=== PATIENT | male | born 1965 | race Caucasian/White ===

== ENCOUNTER 2017-09-14 06:25 | Inpatient (IN) | payer OTHER ==
[2017-08-24 11:27] VITALS: BMI 24.0
--- NOTE | 2017-08-24 12:07 | PAT Medication Instructions ---
Service Date Aug 24, 2017. Current Home Medication List Atorvastatin (Lipitor), 10 MG PO HS Calcipotriene-Betamethasone Di (Taclonex), 1 DOSE TOP 3XWK Flunisolide (Nasal) (Flunisolide), 1 SPRY BETSY DAILY PRN for PRN Levothyroxine Sodium (Synthroid), 150 MCG PO QAM Medication Instructions For Your Scheduled Surgery - Hold the following medications 24 hours prior to surgery: Calcipotriene-Betamethasone Di (Taclonex), 1 DOSE TOP 3XWK - Take the following medications the morning of surgery with a sip of water: Levothyroxine Sodium (Synthroid), 150 MCG PO QAM Flunisolide (Nasal) (Flunisolide), 1 SPRY BETSY DAILY PRN for PRN (if needed) - Take the following medications as scheduled the night before surgery: Flunisolide (Nasal) (Flunisolide), 1 SPRY BETSY DAILY PRN for PRN (if needed) Atorvastatin (Lipitor), 10 MG PO HS If you have any questions please call us at [phone] or [phone] or [phone]
--- NOTE | 2017-08-24 13:03 | DIAGNOSTIC IMAGING REPORT ---
CHEST 2 VIEWS ROUTINE HISTORY: 52 years-old Male pat preoperative exam. No acute chest complaints. Left knee degenerative joint disease. COMPARISON: None available TECHNIQUE: PA and lateral views of the chest FINDINGS: Cardiomediastinal and hilar silhouettes are within normal limits. There is no pneumothorax, pleural effusion, focal airspace consolidation or overt pulmonary edema. Mild degenerative changes of the spine. Bones appear grossly intact. IMPRESSION: No acute cardiopulmonary process. The above report was generated using voice recognition software. It may contain grammatical, syntax or spelling errors. Electronically signed by: Sid Barajas M.D. 08/24/2017 1:02 PM Dictated Date/Time: 08/24/2017 1:01 PM
[2017-08-24 13:12] LABS: BASO % 0.3 %; BASO ABS # 0.02 K/uL (0-0.2); EOS % 2.6 %; EOS ABS # 0.17 K/uL (0-0.5); IG# 0.02 K/uL (0.00-0.02); LYMPH % 22.3 %; LYMPH ABS # 1.43 K/uL (1.2-3.4); MEAN CELL VOLUME 94.9 fL (80-100); MEAN CORPUSCULAR HEMOGLOBIN 31.6 pg (25-34); MEAN CORPUSCULAR HGB CONC 33.3 g/dl (32-36); MEAN PLATELET VOLUME 9.9 fL (7.4-10.4); MONO % 7.3 %; MONO ABS # 0.47 K/uL (0.11-0.59); NEUT % 67.2 %; NEUT ABS # 4.31 K/uL (1.4-6.5); PLATELET COUNT 279 K/uL (130-400); RED CELL DISTRIBUTION WIDTH CV 13.7 % (11.5-14.5); RED CELL DISTRIBUTION WIDTH SD 47.2 fL (36.4-46.3); WHITE BLOOD COUNT 6.42 K/uL (4.8-10.8)
[2017-08-24 13:17] LABS: PTT PATIENT 26.9 SECONDS (21.0-31.0)
--- NOTE | 2017-09-11 10:32 | HISTORY & PHYSICAL EXAMINATION ---
DATE OF ADMISSION: 09/14/2017 CHIEF COMPLAINT: Bilateral knee pain and discomfort, left leg greater than right. HISTORY OF PRESENT ILLNESS: A 52-year-old very active gentleman who presents for surgical treatment of his left knee. He has got a long history of problems, particularly relating to the left knee. He had left knee arthroscopy, partial meniscectomy, chondroplasty and debridement of an ACL tear done by Dr. Bui in 2008. It took quite a while, about 6 months, to recover from this. He did get back to playing basketball for a short period of time but could only play for limited amount of time. Over the years, he has developed increased pain and discomfort and recurrent effusions in his knee. He has been less able to get around and do anything activity rodriguez. He has been through extensive conservative treatment including steroid shots and viscosupplementation. This provides very minimal relief anymore. He has got pain with every step. He would like to proceed with knee arthroplasty. PAST MEDICAL HISTORY: 1. Elevated cholesterol. 2. Hypothyroidism. 3. 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 PAST SURGICAL HISTORY: Include: 1. Knee arthroscopy in 2008. 2. Nephrectomy in 2012. 3. Appendectomy. ALLERGIES: None. CURRENT MEDICINES: 1. Synthroid 150 mcg a day. 2. Taclonex 3 times a week topically. 3. Tylenol. SOCIAL HISTORY: A 52-year-old male. 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 Does not smoke. FAMILY HISTORY: Negative for heart disease, diabetes, or blood clots. REVIEW OF SYSTEMS: Negative for diabetes, neurologic problems, vascular problems or bleeding disorders. Denies any chest pain, no shortness of breath. No history of DVT or PE. He does only have a single kidney due to donation. PHYSICAL EXAMINATION: GENERAL: Reveals a thin, healthy, middle-aged male. He looks to be in good health. HEAD, EYES, EARS, NOSE, AND THROAT EXAMINATION: Benign. NECK: Supple. No lymphadenopathy. LUNGS: Clear to auscultation. HEART: Regular rate and rhythm. ABDOMEN: Soft, nontender, nondistended. EXTREMITY EXAMINATION: Grossly neurovascularly intact except as follows: Examination of left knee reveals the patient ambulates with a varus alignment to knees. He has got varus thrust. Small to moderate sized knee effusion. Range of motion about 5-125. A soft endpoint to Mode. No pivot. X-RAYS: X-rays of the left knee revealed advanced left knee DJD. He has got complete loss of his medial joint space. He has subchondral sclerosis with some degree of tibial femoral subluxation. ASSESSMENT: A 52-year-old male with a history of a knee arthroscopy in the left knee in the past with advanced DJD with chronic ACL deficiency. He would like to have his left knee replaced. PLAN: We will take him to the operating room and do a left total knee replacement. The risks and benefits of this procedure were explained to the patient including but not limited to DVT, PE, , infection, neurological injury, vascular injury, bleeding problem, pain, limited range of motion, stiffness, failure to relieve his symptoms, incomplete relief of symptoms, need for further surgery in the future, fracture, leg length inequality, nerve palsy, need for revision surgery. I made him fully aware at his young age this might need to be revised at some point in the future and he is aware of that. As far as discharge plans, he is planning to be discharged to home using [facility] home health program.
[2017-09-14] VITALS (9 sets, daily range): BP systolic 94–117; BP diastolic 53–72; PULSE 52–75; TEMP 36.4–36.7; O2SAT 93–100; Ht 185.4 cm; Wt 83.9 kg
[~2017-09-14] VITALS: Ht 185.4 cm; Wt 83.9 kg
[~2017-09-14 06:25] MED LIST: ACETAMINOPHEN 500 MG TAB PO SCH; ATOR10TA82 PO; BUPIVACAINE LIPOSOME 266 MG, BUPIVACAINE/EPINEPHRINE INJ 50 ML, SODIUM CHLORIDE 0.9% PF... INFIL SCH; CALCOIN3 TOP; CEFAZOLIN 2000MG IV PUSH 10 ML IV SCH; FAMOTIDINE 20 MG TAB PO SCH; FLUN0.02 NAE; GABAPENTIN 300 MG CAP PO SCH; LACTATED RINGER'S 1000ML 1,000 ML IV SCH; LACTATED RINGER'S 1000ML 500 ML IV ONE; LACTATED RINGER'S 1000ML IV SCH; LEVO150T PO; METOCLOPRAMIDE HCL 10 MG TAB PO SCH; SCOPOLAMINE 1.5 MG TDSY TD SCH; TRANEXAMIC ACID INJ 1,000 MG in SYRINGE 0 ML IV SCH
[2017-09-14] MEDS ORDERED: EpINEphrine INJ 1MG/ML AMP 1 MG/ML AMP ONE (06:41)
[2017-09-14] MEDS ORDERED: BUPIVACAINE 0.25% 30 ML VIAL ONE (06:41)
[2017-09-14] MEDS ORDERED: BUPIVACAINE 0.5 % 5 MG/1 ML PF 10ML VIAL ONE (06:41)
[2017-09-14] MEDS ORDERED: DEXAMETHASONE SOD INJ 4 MG/ML VIAL ONE (06:42)
--- NOTE | 2017-09-14 06:51 | History & Physical Bridge Note ---
H&P Re-Evaluation Bridge Note: I have examined the patient, reviewed the History & Physical and in the interval since the performance of the History & Physical I have noted the following changes of clinical significance: No changes noted
[2017-09-14] MEDS ORDERED: MIDAZOLAM HCL 1 MG/ML 2ML VIAL ONE (07:58)
[2017-09-14] MEDS ORDERED: FENTANYL CITRATE INJ 50 MCG/1 ML 2 ML VIAL ONE (07:59)
[2017-09-14] MEDS ORDERED: BACITRACIN 50000 UNIT VIAL ONE (08:54)
[2017-09-14] MEDS ORDERED: SODIUM CHLORIDE 0.9% PF 50 ML VIAL ONE (08:54)
[2017-09-14] MEDS ORDERED: BUPIVACAINE LIPOSOME 1/3% 266 MG/20 ML VIAL INFIL ONE (08:54)
[2017-09-14] MEDS ORDERED: BUPIVACAINE/EPINEPHRINE 0.25% 1:200,000 30 ML VIAL ONE (08:54)
[2017-09-14] MEDS ORDERED: PROPOFOL IV EMULSION 10 MG/ML 20 ML VIAL IV ONE (10:13)
[2017-09-14] MEDS ORDERED: EpHEDrine SULFATE INJ 50 MG/ML AMP IV PRN (10:15)
[2017-09-14] MEDS ORDERED: ATROPINE SULFATE 0.1 MG/ML 5ML SYR IV PRN (10:15)
[2017-09-14] MEDS ORDERED: ONDANSETRON INJ 2 MG/ML 2 ML VIAL IV PRN ×2 (10:15→11:00)
[2017-09-14] MEDS ORDERED: FENTANYL CITRATE INJ 50 MCG/1 ML 2 ML VIAL IV PRN (10:15)
--- NOTE | 2017-09-14 10:54 | [facility] Post Operative Brief Note ---
Immediate Operative Summary Operative Date Sep 14, 2017. Pre-Operative Diagnosis Left Knee Advanced Degenerative Joint Disease Post-Operative Diagnosis Left Knee Advanced Degenerative Joint Disease Procedure(s) Performed Left Total Knee Arthroplasty Surgeon Dr. Soriano Master Police Detective Surgeon(s) KAREEM Starr Estimated Blood Loss 50 ml Findings Left Knee DJD Fluids (cc crystalloids) 1500 cc Specimens A. Left Knee Bone and Tissue Drains None Anesthesia Spinal Complication(s) None Disposition Recovery Room / PACU
[2017-09-14] MEDS ORDERED: ZOLPIDEM TARTRATE 5 MG TAB PO PRN (11:00)
[2017-09-14] MEDS ORDERED: DiphenhydrAMINE HCL 50 MG/ML VIAL IV PRN (11:00)
[2017-09-14] MEDS ORDERED: TAMSULOSIN HCL 0.4 MG CAP PO PRN (11:00)
[2017-09-14] MEDS ORDERED: METOCLOPRAMIDE HCL INJ 5 MG/ML 2 ML VIAL IV PRN (11:00)
[2017-09-14] MEDS ORDERED: MAGNESIUM HYDROXIDE SUSP 30 ML UDC PO PRN (11:00)
[2017-09-14] MEDS ORDERED: BISACODYL 10 MG SUPP PR PRN (11:00)
[2017-09-14] MEDS ORDERED: ALUMINUM/MAGNESIUM/SIMETH (MAALOX MAX) 30 ML UDC PO PRN (11:00)
[2017-09-14] MEDS ORDERED: SILVER SULFADIAZINE 1% CR 50 GM JAR EXT PRN (11:00)
[2017-09-14] MEDS ORDERED: MoRPHine SULFATE 2 MG/ML CARP IV PRN (11:00)
--- NOTE | 2017-09-14 11:30 | DIAGNOSTIC IMAGING REPORT ---
L KNEE 1 OR 2 VIEWS ROUTINE CLINICAL HISTORY: 52 years-old Male presenting with AP/LATERAL IN PACU LEFT KNEE. TECHNIQUE: Frontal and crosstable lateral views of the left knee were obtained. COMPARISON: 06/03/2017. FINDINGS: There has been interval total left knee arthroplasty with patellar resurfacing. Expected intra-articular and soft tissue emphysema. Overlying surgical skin vianey. No malalignment. No periprosthetic fracture. No hardware complication. Fabella noted. IMPRESSION: Expected postsurgical appearance status post left total knee arthroplasty with patellar resurfacing. Electronically signed by: Ronny Donato M.D. 09/14/2017 11:28 AM Dictated Date/Time: 09/14/2017 11:27 AM
--- NOTE | 2017-09-14 11:38 | OPERATIVE REPORT ---
DATE OF OPERATION: 09/14/2017 PREOPERATIVE DIAGNOSIS: Left knee degenerative joint disease. POSTOPERATIVE DIAGNOSIS: Left knee degenerative joint disease. PROCEDURE PERFORMED: Left cemented posterior stabilized total knee arthroplasty. SURGEON: Dr. Derrick Soriano. HOSPICE COMMUNITY LIAISON: Celestino Joseph PA-C. COMPLICATIONS: None. ESTIMATED BLOOD LOSS: 50 mL. FLUID REPLACEMENT: 1600 mL crystalloid fluid replacement. TOURNIQUET TIME: 59 minutes at 300 mmHg. ANESTHESIA: Spinal with adductor canal block. DRAINS: None. SPECIMENS: Left knee sent for pathology. OPERATIVE INDICATIONS: The patient is a 52-year-old male who has had a long history of left knee pain and discomfort. He underwent a knee arthroscopy done elsewhere back in 2008 which provided some temporary relief. Over time, he has developed increased pain and discomfort, swelling and recurrent effusions in his knee unresponsive to conservative care. X-rays show progressive knee arthritis. He elected to proceed with operative treatment. OPERATIVE FINDINGS: Operative findings revealed advanced left knee DJD with grade 4 [id number] disease in the medial femoral condyle and medial tibial plateau with eburnation in these areas. He also had grade 4 changes of the trochlea. The patella was more well preserved as was the lateral compartment of his knee. He had a moderate sized joint effusion. OPERATIVE IMPLANTS: Operative implants consisted of: 1. Biomet Vanguard size 72.5 left posterior stabilized femoral component. 2. Biomet size 83 tibial tray. 3. A 12 mm posterior stabilized polyethylene insert. 4. A 34 x 8.5 all poly patella. OPERATIVE PROCEDURE: The patient was taken to the operating room, identified and placed on the operating table in supine position. All contact areas were appropriately padded. IV antibiotics were provided by anesthesia team. A spinal anesthetic and adductor canal block had been provided in the holding area. Pascual catheter was placed in sterile fashion. The left thigh tourniquet was then placed and the left lower extremity was then prepped and draped in the usual sterile fashion. The left leg was elevated and exsanguinated with Esmarch and tourniquet was placed at 300 mmHg. An anterior approach to the left knee was then performed through a longitudinal incision centered over the patella. Sharp dissection was carried down through the subcutaneous tissues down to the level of the extensor mechanism. A medial parapatellar arthrotomy incision was made. Some subperiosteal dissection was carried out medially. The fat pad was resected from beneath the patellar tendon. The lateral patellofemoral ligament was released. The patella was everted and knee was flexed. The osteophytes were taken off the distal femur. The ACL and PCL were then released from the distal femur and the tibia subluxated anteriorly. The external tibial alignment jig was then placed in the anterior face of the tibia and adjusted 16 mm medially. Proximal tibial cut was made to remove about a millimeter of bone from the most deficient aspect and posteromedial tibial plateau which was fairly worn. Some osteophytes were taken off medially. The tibia was sized to a size 83. Attention was then drawn to the femur. The distal femur was entered with a sharp drill. Intramedullary canal was suctioned. A left 6-degree valgus cutting guide was placed. Distal femoral cutting block was pinned in place. Distal femoral cut was made to take an additional 3 mm of bone off the distal femur. The femur was then sized to a size 72.5. We did downsize this slightly. AP cutting block was pinned parallel to the epicondylar axis, which was 3 degrees of external rotation. The anterior cut, anterior chamfer, posterior cut, posterior chamfer cuts were made. Box cutting guide was placed and adjusted slightly lateral and the box cut was made. The knee was flexed. The remnants of the medial and lateral meniscus were excised. The osteophytes were taken off the posterior aspect of the femur. Trial femoral component was placed. Tibial tray was pinned in maximum external rotation and drill and stem punch were used to create defect in proximal tibia for the tibial tray. The knee was then trialed and the 12 mm insert fit most appropriately. Attention was then drawn to the patella. The patella was cleaned of all soft tissues. Patella thickness measured 26 mm in thickness and was cut down to 14. It was sized to a size 34 patella. Lateral osteophyte was removed. Patella button was placed. Knee was taken through range of motion, patella tracked nicely with no thumbs test. Attention was then drawn toward placement of permanent components. All trial components removed. Bone plug was placed in the distal femur to limit blood loss. A double batch of Palacos G cement was mixed. A left size 72.5 posterior stabilized femoral component, size 83 tibial tray, 12 mm posterior stabilized polyethylene insert, and a 34 x 8.5 all poly patella were then cemented in place. The knee was brought out into full extension until cement hardened. A final cement check was then performed. Pericapsular tissues were injected with a total of 100 mL of a combination of 20 mL of Exparel, 30 mL of normal saline, and 50 mL of 0.25% Marcaine with epinephrine. The tourniquet was then let down for a total tourniquet time of 59 minutes. Hemostasis was assured with use of electrocautery. The extensor mechanism was then closed with a combination of #1 PDS suture and #1 Vicryl suture in a apsyrp-rx-fojni fashion. Extensor mechanism was checked and found to be intact. Subcutaneous tissues were then closed with 2-0 Dexon suture in a buried interrupted fashion. Skin was closed skin vianey. Leg was then cleaned and dried and a sterile dressing of Xeroform, 4 x 4s, sterile cast padding and Augusto bandage were applied. The patient then transferred to the recovery room in stable condition. The patient tolerated the procedure with no complications. All needle and sponge counts were correct at the end of the operation. I attest to the content of the Intraoperative Record and any orders documented therein. Any exception s are noted below.
--- NOTE | 2017-09-14 11:39 | Anesthesiology Progress Note ---
Anesthesia Post Op Note Date & Time Sep 14, 2017 at 11:39 Vital Signs Pain Intensity: 0 Vital Signs Past 12 Hours Date Time Temp Pulse Resp B/P (MAP) Pulse Ox O2 Delivery O2 Flow Rate FiO2 09/14/17 11:35 36.5 67 16 97/52 100 Nasal Cannula 2 09/14/17 11:25 63 16 94/51 100 Nasal Cannula 2 09/14/17 11:15 51 16 93/54 100 Oxymask 5 09/14/17 11:05 36.5 73 16 111/65 98 Oxymask 5 09/14/17 10:58 36.5 64 16 98/54 98 Oxymask 5 09/14/17 07:33 36.5 67 18 117/72 99 Room Air 09/14/17 07:05 36.5 67 18 117/72 (87) Room Air Notes Mental Status: alert / awake / arousable, participated in evaluation Pt Amnestic to Procedure: Yes Nausea / Vomiting: adequately controlled Pain: adequately controlled Airway Patency, RR, SpO2: stable & adequate BP & HR: stable & adequate Hydration State: stable & adequate Neuraxial Anesthesia: was administered, sensory block is resolving Anesthetic Complications: no major complications apparent
--- NOTE | 2017-09-14 13:40 | PROGRESS NOTE ---
DATE: 09/14/2017 DATE: 09/14/2017 SUBJECTIVE: A 52-year-old gentleman postop from a left knee replaced. He is doing well. Not having any significant pain yet. No chest pain or shortness of breath. Not feeling dizzy or lightheaded. OBJECTIVE: VITAL SIGNS: Temperature 36.4. Vital signs stable. PHYSICAL EXAMINATION: GENERAL: Reveals a pleasant, middle-aged male. He is sitting up in bed and talking to his . He looks pretty comfortable. Just a little bit groggy. LUNGS: Clear to auscultation. HEART: Has a regular rate and rhythm. ABDOMEN: Soft, nontender, nondistended. EXTREMITY EXAMINATION: Grossly neurovascularly intact except as follows: Examination of the left lower extremity reveals the leg to be well aligned. He can dorsiflex and plantarflex his foot appropriately. He has got brisk refill and good distal pulse. X-RAYS: X-rays of the left knee from recovery room were reviewed. Shows left mentally stabilized total knee arthroplasty. Components looked to be in good position. No signs of problems. ASSESSMENT: A 52-year-old gentleman postop from a left knee replacement, doing well. His pain is controlled. He is neurologically intact. PLAN: 1. DVT prophylaxis including thigh-high TEDs, SCDs, and aspirin twice a day. 2. PT/OT. Weight bear as tolerated. Left total knee protocol. 3. Pain control. Doing pretty well with current pain regimen. He only has a single kidney. We are going to give him a little Toradol for 2 days and that is it. We will avoid NSAIDs after that. We will follow his creatinine. 4. IV antibiotics x24 hours. 5. Disposition. Plan to discharge to home with likely some home health once adequately recovered.
[2017-09-14] MEDS: D5W AND 1/2NSS + 20MEQ KCL 1,000 ML IV SCH ×2 (13:51→21:54)
[2017-09-14] MEDS: ACETAMINOPHEN 500 MG TAB PO SCH ×2 (13:52→21:58)
[2017-09-14] MEDS: KETOROLAC TROMETHAMINE 30 MG/ML VIAL IV. SCH ×2 (13:52→20:27)
[2017-09-14] MEDS: FERROUS GLUCONATE 324 MG TAB PO SCH ×2 (14:10→17:43)
[2017-09-14] MEDS: OXYCODONE HCL IR 5 MG TAB (IMMEDIATE RELEASE) PO PRN ×2 (16:12→23:01)
[2017-09-14] MEDS: CHECK SCOPOLAMINE PATCH PLACEMENT SCH (16:15)
[2017-09-14] MEDS ORDERED: TRANEXAMIC ACID INJ 1,000 MG in SODIUM CHLORIDE 0.9% 100ML 100 ML IV SCH (17:00)
[2017-09-14] MEDS: CEFAZOLIN IV 2,000 MG in SYRINGE 0 ML IV SCH (18:19)
[2017-09-14] MEDS: ASPIRIN 325 MG ECTAB PO SCH (21:00)
[2017-09-14] MEDS: ATORVASTATIN 10 MG TAB PO SCH (21:56)
[2017-09-14] MEDS: SENNA 8.6 MG TAB PO SCH (21:56)
[2017-09-14] MEDS: TAPENTADOL ER 50 MG TABCR PO SCH (21:56)
[2017-09-14] MEDS: DOCUSATE SODIUM 100 MG CAP PO SCH (21:57)
[2017-09-15] MEDS: CHECK SCOPOLAMINE PATCH PLACEMENT SCH ×3 (00:15→15:28)
[2017-09-15] MEDS: CEFAZOLIN IV 2,000 MG in SYRINGE 0 ML IV SCH (01:55)
[2017-09-15] MEDS: KETOROLAC TROMETHAMINE 30 MG/ML VIAL IV. SCH ×4 (01:55→20:04)
[2017-09-15 03:31] VITALS: BP 101/62; PULSE 74; TEMP 36.5; O2SAT 96
[2017-09-15] MEDS: D5W AND 1/2NSS + 20MEQ KCL 1,000 ML IV SCH (04:52)
[2017-09-15] MEDS: LEVOTHYROXINE 150 MCG TAB PO SCH (05:37)
[2017-09-15] MEDS: ACETAMINOPHEN 500 MG TAB PO SCH ×3 (05:37→21:32)
[2017-09-15 06:55] VITALS: BP 103/59; PULSE 65; TEMP 36.6; O2SAT 97
[2017-09-15 07:45] VITALS: O2SAT 97
[2017-09-15] MEDS: FERROUS GLUCONATE 324 MG TAB PO SCH ×3 (08:20→18:02)
[2017-09-15 08:21] LABS: HEMATOCRIT 38.9 % (42-52); HEMOGLOBIN 13.1 g/dL (14.0-18.0); MEAN CELL VOLUME 93.1 fL (80-100); MEAN CORPUSCULAR HEMOGLOBIN 31.3 pg (25-34); MEAN CORPUSCULAR HGB CONC 33.7 g/dl (32-36); MEAN PLATELET VOLUME 10.2 fL (7.4-10.4); PLATELET COUNT 235 K/uL (130-400); RED CELL DISTRIBUTION WIDTH CV 13.5 % (11.5-14.5); RED CELL DISTRIBUTION WIDTH SD 45.8 fL (36.4-46.3); WHITE BLOOD COUNT 17.54 K/uL (4.8-10.8)
[2017-09-15 08:53] LABS: CALCIUM 8.4 mg/dl (8.5-10.1); CREATININE 1.1 mg/dl (0.60-1.40); POTASSIUM 4.1 mmol/L (3.5-5.1)
[2017-09-15] MEDS: ASPIRIN 325 MG ECTAB PO SCH ×2 (09:00→20:56)
[2017-09-15] MEDS: DOCUSATE SODIUM 100 MG CAP PO SCH ×2 (09:03→20:56)
[2017-09-15] MEDS: TAPENTADOL ER 50 MG TABCR PO SCH ×2 (09:03→20:56)
[2017-09-15] MEDS: PANTOprazole SOD 40 MG TAB PO SCH (09:04)
[2017-09-15] MEDS: MULTIVITAMIN TAB PO SCH (09:04)
[2017-09-15 11:39] VITALS: BP 116/73; PULSE 73; TEMP 36.5; O2SAT 97
[2017-09-15] MEDS: OXYCODONE HCL IR 5 MG TAB (IMMEDIATE RELEASE) PO PRN ×2 (12:05→20:03)
--- NOTE | 2017-09-15 12:59 | Anesthesiology Progress Note ---
Anesthesia Post Op Note Date & Time Sep 15, 2017 at 12:58 Vital Signs Pain Intensity: 2.0 Vital Signs Past 12 Hours Date Time Temp Pulse Resp B/P (MAP) Pulse Ox O2 Delivery O2 Flow Rate FiO2 09/15/17 11:39 36.5 73 16 116/73 (87) 97 Room Air 09/15/17 07:45 97 Room Air 09/15/17 06:55 36.6 65 19 103/59 (74) 97 Room Air 09/15/17 03:31 36.5 74 16 101/62 (75) 96 Room Air Notes Mental Status: alert / awake / arousable, participated in evaluation Pt Amnestic to Procedure: Yes Nausea / Vomiting: adequately controlled Pain: adequately controlled Airway Patency, RR, SpO2: stable & adequate BP & HR: stable & adequate Hydration State: stable & adequate Neuraxial Anesthesia: sensory block resolved Anesthetic Complications: no major complications apparent
--- NOTE | 2017-09-15 15:18 | PROGRESS NOTE ---
DATE: 09/15/2017 SUBJECTIVE: A 52-year-old gentleman postop day #1 from a left knee replacement. He is doing well. He rates his maximum pain at about 2. No chest pain or shortness of breath. Not feeling dizzy or lightheaded. OBJECTIVE: VITAL SIGNS: Temperature 36.5. Vital signs stable. GENERAL: Physical examination reveals a healthy, pleasant, middle-aged male. He is sitting up in bed and looks quite comfortable. EXTREMITIES: Examination of the left leg reveals the dressing to be in place. Leg is well aligned. He can dorsiflex and plantarflex his foot appropriately. He is neurologically intact. LABORATORY DATA: Hemoglobin 13.1, hematocrit 38.9, and white cell count 17.54. Electrolytes are stable. Creatinine 1.10. ASSESSMENT: A 52-year-old gentleman postop day #1 from a left knee replacement, doing pretty well. Pain is controlled. He is neurologically intact. PLAN: 1. DVT prophylaxis including thigh-high TEDs, SCDs, and aspirin twice a day. 2. PT/OT. Weightbear as tolerated. Left total knee protocol. 3. Pain control. Doing pretty well with current pain regimen. We will do 48 hours of Toradol and then stop altogether due to single kidney. 4. Disposition: He is planning to be discharged to home with some home health once adequately recovered.
[2017-09-15 15:30] VITALS: BP 138/71; PULSE 65; TEMP 36.9; O2SAT 97
[2017-09-15] MEDS: ATORVASTATIN 10 MG TAB PO SCH (20:56)
[2017-09-15] MEDS: SENNA 8.6 MG TAB PO SCH (20:56)
[2017-09-15] MEDS ORDERED: ACET-24 PO (21:11)
[2017-09-15] MEDS ORDERED: ASPEC325 PO (21:11)
[2017-09-15] MEDS ORDERED: RXC5 PO (21:11)
--- NOTE | 2017-09-15 21:13 | Discharge Instructions ---
Discharge Instructions Date of Service Sep 15, 2017. Admission Reason for Admission: Left Knee Degenerative Joint Disease Discharge Discharge Diagnosis / Problem: Left Knee Replacement Discharge Goals Goal(s): Decrease discomfort, Improve function, Increase independence, Improve disease control, Therapeutic intervention Activity Recommendations Activity Limitations: per Instructions/Follow-up section Weightbearing Status: Left weightbearing . Instructions / Follow-Up Instructions / Follow-Up ACTIVITY RECOMMENDATIONS: Physical Therapy: * You will go to physical therapy three times each week for four to six weeks after your surgery in order to regain your knee range of motion and to retrain your knee to work properly. * It is just as important to make sure you are getting your knee perfectly straight as it is to regain your knee bend. * Taking a pain pill an hour before therapy can help you have a more productive and comfortable therapy session. Home Exercise: * You were shown a series of exercises (heel props, heel slides, etc.) in the hospital. Do these exercises three to four times each day including the exercises you were shown in physical therapy. Walking: * Get up and walk several times each day. For the first four weeks, try not to stand or walk for more than one hour at a time. If you do stand or walk for more than one hour, you will not hurt anything, but your knee and leg will likely swell. * As you feel comfortable, you may change from the walker or crutches to a cane and then to independent walking. MEDICATIONS: New Medicine: * You will likely be taking one or more of these medications: 1. Oxycodone - A quick and shorter-acting pain medication. Take one to two tablets every four to six hours to lessen your pain. 2. Aspirin - Thins your blood to lessen the chance of forming a blood clot. * The most common side effects of pain medicine and iron are nausea and constipation. If nausea or constipation is too much of a problem or if you have any questions about your new medicines or doses, call [facility] at [phone]. We will try to help you manage these issues. VERY IMPORTANT TO READ AND REVIEW" Pain: * The immediate post-operative period after knee replacement surgery is often quite painful. * You are given a prescription for pain medicine. You should take it, as directed, when you need it, especially before physical therapy and before going to bed. Pain that interferes with sleep is very common and can last several months. * You will likely need pain medicine for the first four to six weeks. It will not stop all of the pain. The pain will lessen and as you feel better, you may change to milder pain medicine such as Tylenol. * The most common side effects of pain medicine are nausea and constipation, so don't take more than you need. SPECIAL CARE INSTRUCTIONS: TEDs/Elastic Stockings: * The white elastic stockings help limit swelling and prevent blood clots from forming in your legs. The more you wear them, the more they work. * Wear them for six weeks after knee replacement surgery and four weeks after partial knee replacement. Prevention of Infection: * Take antibiotics one hour before any dental cleaning, dental work, urological procedure, gastrointestinal procedure or any invasive surgery in order to prevent your new joint from getting infected. * You may get the antibiotics from the doctor performing the procedure or you may call our office at before and we will call in a prescription to the pharmacy of your choice. Things to Watch For: * Drainage from the incision site that occurs more than one week after your surgery. * Severely increased knee/leg pain or swelling. * Increased redness at the incision site. * Fever above 102 degrees Fahrenheit. * Unusual chest pain or shortness of breath. * Unusual pain or burning with urination. Call [facility] at with any of the above problems or if you have any questions about your medicines or recovery. FOLLOW UP VISIT: Make an appointment to see your doctor for approximately two weeks after surgery for a progress check and staple removal by calling the office at . Current Hospital Diet Patient's current hospital diet: Regular Diet Discharge Diet Recommended Diet: Regular Diet Procedures Procedures Performed: Left Total Knee Arthroplasty Pending Studies Studies pending at discharge: no Medical Emergencies . Who to Call and When: Medical Emergencies: If at any time you feel your situation is an emergency, please call [phone] immediately. . Non-Emergent Contact Non-Emergency issues call your: Surgeon . "Provider Documentation" section prepared by Derrick Soriano. . VTE Core Measure Inpt VTE Proph given/why not?: Other Anticoagulation, T.E.D. Stockings, SCD's
[2017-09-15 23:00] VITALS: BP 104/65; PULSE 58; TEMP 36.8; O2SAT 97
[2017-09-16] MEDS: OXYCODONE HCL IR 5 MG TAB (IMMEDIATE RELEASE) PO PRN ×2 (01:26→09:46)
[2017-09-16] MEDS: KETOROLAC TROMETHAMINE 30 MG/ML VIAL IV. SCH ×2 (01:28→07:18)
[2017-09-16] MEDS: LEVOTHYROXINE 150 MCG TAB PO SCH (06:17)
[2017-09-16] MEDS: ACETAMINOPHEN 500 MG TAB PO SCH (06:17)
[2017-09-16] MEDS: CHECK SCOPOLAMINE PATCH PLACEMENT SCH ×2 (07:19)
[2017-09-16 07:20] VITALS: BP 112/68; PULSE 66; TEMP 36.3; O2SAT 97
[2017-09-16 07:32] VITALS: O2SAT 97
--- NOTE | 2017-09-16 07:35 | PROGRESS NOTE ---
DATE: 09/16/2017 DATE: 09/16/2017 SUBJECTIVE: A 52-year-old gentleman postop day 2 from left replacement. He is doing pretty well. Knee is sore but the pain is manageable. No chest pain or shortness of breath. Not feeling dizzy or lightheaded. OBJECTIVE: VITAL SIGNS: Temperature 36.8. Vital signs stable. GENERAL: Reveals a pleasant, middle-aged male. He is sitting up in his bedside chair with his leg propped up and looks pretty comfortable. EXTREMITIES: Examination of the left leg reveals the dressing to be clean, dry and intact. No significant drainage. Some moderate swelling. He can dorsiflex and plantarflex his foot appropriately. NEUROLOGIC: He is neurologically intact. ASSESSMENT: A 52-year-old gentleman postop day 2 from left knee replacement, doing pretty well. Pain is reasonably well controlled. PLAN: 1. DVT prophylaxis including thigh high TEDs, SCDs, and aspirin twice daily. 2. PT, OT. Weightbearing as tolerated. Left total knee protocol. 3. Pain control. Doing well with current pain regimen. 4. Disposition. Plan to discharge to home with home health later today.
[2017-09-16] MEDS: PANTOprazole SOD 40 MG TAB PO SCH (08:58)
[2017-09-16] MEDS: FERROUS GLUCONATE 324 MG TAB PO SCH (08:59)
[2017-09-16] MEDS: ASPIRIN 325 MG ECTAB PO SCH (08:59)
[2017-09-16] MEDS: MULTIVITAMIN TAB PO SCH (08:59)
[2017-09-16] MEDS: DOCUSATE SODIUM 100 MG CAP PO SCH (08:59)
[2017-09-16] MEDS: TAPENTADOL ER 50 MG TABCR PO SCH (09:00)
[2017-09-16 09:29] VITALS: BP 112/68; PULSE 66; TEMP 36.3; O2SAT 97
--- NOTE | 2017-09-29 10:47 | DISCHARGE SUMMARY ---
ADMITTING PHYSICIAN AND SURGEON: Dr. Soriano. ADMITTING DIAGNOSIS: Left knee degenerative joint disease. SURGERY PERFORMED: Left total knee arthroplasty. 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 CONSULTS: None obtained. HISTORY AND PHYSICAL EXAMINATION: Well documented in the patient's chart. HOSPITAL COURSE: The patient was admitted on 09/14/2017, and underwent a total knee arthroplasty, tolerated the procedure well. There were no complications. He was transferred to the PACU postoperatively and later to the orthopedic floor for further care. He was given Ancef for antibiotic prophylaxis, MACARENA stockings, SCDs and aspirin for DVT prophylaxis. Hemoglobin, hematocrit and vital signs were monitored during his hospital stay and remained stable. He did not require any blood transfusions. There were no complications. By postoperative day 2, he was tolerating a general diet, pain was controlled with oral pain medicine. He was participating in physical therapy and had no signs or symptoms of deep vein thrombosis. On postop day 2, he was discharged home and set up with home health services, given printed discharge instructions including new prescriptions for extra strength Tylenol, aspirin 325 mg b.i.d., oxycodone, continue his home medications, continue physical therapy, weightbearing as tolerated, MACARENA stockings. Follow up in 10-12 days or sooner if there are any problems or concerns.
== END 2017-09-16 10:42 | disposition home health service (06) | DRG 470 ==
LOC: C.ACU 06:25 → C.3E 10:58 → ENRESERV 11:27
PROVIDERS: ADMIT Orthopaedic Surgery Sports Medicine; ATTEND Orthopaedic Surgery Sports Medicine
PROC: 0SRD0J9 Replacement of Left Knee Joint with Synthetic Substitute, Cemented, Open Approach (ICD-10-PCS; principal; 2017-09-14 09:00)
DX: M17.12 Unilateral primary osteoarthritis, left knee (principal); E78.00 Pure hypercholesterolemia, unspecified; E03.9 Hypothyroidism, unspecified; Z90.5 Acquired absence of kidney